=== PATIENT | female | born 1950 | race Caucasian/White ===

== ENCOUNTER 2021-08-18 10:07 | Inpatient (IN) ==
--- NOTE | 2021-06-30 14:47 | PAT Medication Instructions ---
Medication Instructions Date of Service June 30, 2021 Home Medications Medication Instructions Recorded lisinopril 20 mg tablet 20 mg PO BID #180 tab 06/19/20 albuterol sulfate 90 mcg/actuation 2 puff INH Q6H PRN #18 gm 09/30/20 aerosol inhaler isosorbide mononitrate 60 mg 30 mg PO BID #90 tab 11/23/20 tablet,extended release 24 hr alendronate 70 mg tablet 70 mg PO WEEKLY #7 tab 01/06/21 carvedilol 6.25 mg tablet 3.125 mg PO BID #180 tab 01/29/21 meclizine 25 mg tablet 25 mg PO TID PRN #60 tab 04/12/21 amlodipine 5 mg tablet 5 mg PO BID #180 tab 06/08/21 pantoprazole 40 mg tablet,delayed 40 mg PO QAM #90 tab 06/08/21 release (Protonix) sertraline 100 mg tablet 100 mg PO QAM #90 tab 06/08/21 cyclobenzaprine 5 mg tablet 5 mg PO TID PRN #20 tab 06/21/21 aspirin 81 mg tablet,delayed release 81 mg PO QAM cholecalciferol (vitamin D3) 125 mcg (5,000 unit) capsule 5,000 units PO QAM nitroglycerin 0.4 mg sublingual tablet 0.4 mg SL Q5M PRN melatonin 5 mg capsule 10 mg PO HS lisinopril 20 mg tablet 20 mg PO BID albuterol sulfate 90 mcg/actuation aerosol inhaler 2 puff INH Q6H PRN isosorbide mononitrate 60 mg tablet,extended release 24 hr 30 mg PO BID alendronate 70 mg tablet 70 mg PO WEEKLY carvedilol 6.25 mg tablet 3.125 mg PO BID acetaminophen 500 mg tablet (Tylenol Extra Strength) 1,000 mg PO Q6H PRN atorvastatin 40 mg tablet 40 mg PO HS meclizine 25 mg tablet 25 mg PO TID PRN amlodipine 5 mg tablet 5 mg PO BID pantoprazole 40 mg tablet,delayed release (Protonix) 40 mg PO QAM sertraline 100 mg tablet 100 mg PO QAM cyclobenzaprine 5 mg tablet 5 mg PO TID PRN acyclovir 400 mg tablet 400 mg PO BID furosemide 20 mg tablet (Lasix) 20 mg PO QAM naproxen sodium 220 mg capsule (Aleve) 220 mg PO BID PRN Continue as directed nitroglycerin 0.4 mg sublingual tablet 0.4 mg SL Q5M PRN (if needed) alendronate 70 mg tablet 70 mg PO WEEKLY (just do not take morning of surgery) ASK your surgeon for instructions naproxen sodium 220 mg capsule (Aleve) 220 mg PO BID PRN ASK your prescriber and surgeon aspirin 81 mg tablet,delayed release 81 mg PO QAM DO NOT take the morning of surgery cholecalciferol (vitamin D3) 125 mcg (5,000 unit) capsule 5,000 units PO QAM lisinopril 20 mg tablet 20 mg PO BID cyclobenzaprine 5 mg tablet 5 mg PO TID PRN furosemide 20 mg tablet (Lasix) 20 mg PO QAM Take morning of surgery With a small sip of water, OTHERWISE NOTHING TO EAT OR DRINK AFTER MIDNIGHT: albuterol sulfate 90 mcg/actuation aerosol inhaler 2 puff INH Q6H PRN (use if needed; please bring with you to hospital day of surgery if possible) isosorbide mononitrate 60 mg tablet,extended release 24 hr 30 mg PO BID carvedilol 6.25 mg tablet 3.125 mg PO BID acetaminophen 500 mg tablet (Tylenol Extra Strength) 1,000 mg PO Q6H PRN (okay to take up to 4 hours prior to surgery if needed) meclizine 25 mg tablet 25 mg PO TID PRN (if needed) amlodipine 5 mg tablet 5 mg PO BID pantoprazole 40 mg tablet,delayed release (Protonix) 40 mg PO QAM sertraline 100 mg tablet 100 mg PO QAM acyclovir 400 mg tablet 400 mg PO BID Take evening before surgery melatonin 5 mg capsule 10 mg PO HS lisinopril 20 mg tablet 20 mg PO BID albuterol sulfate 90 mcg/actuation aerosol inhaler 2 puff INH Q6H PRN (if needed) isosorbide mononitrate 60 mg tablet,extended release 24 hr 30 mg PO BID carvedilol 6.25 mg tablet 3.125 mg PO BID acetaminophen 500 mg tablet (Tylenol Extra Strength) 1,000 mg PO Q6H PRN (if needed) atorvastatin 40 mg tablet 40 mg PO HS meclizine 25 mg tablet 25 mg PO TID PRN (if needed) amlodipine 5 mg tablet 5 mg PO BID cyclobenzaprine 5 mg tablet 5 mg PO TID PRN (if needed) acyclovir 400 mg tablet 400 mg PO BID Other Notes If you have any questions please call us at [phone] or [phone] or [phone] or [phone]
--- NOTE | 2021-08-16 08:40 | Anesthesiology Consultation ---
Date of Service August 16, 2021 Assessment & Plan (1) Encounter for pre-operative examination: - Pt states that her transportation can only bring her to hospital after 8:00 am DOS. She was advised of need to contact Dr. Mahmood's office regarding this to further coordinate. - cardiology surgeon ordered clearance 06/25/2021 [place]: "...Cardiology office visit (06/25/21): "Based on her functional status without anginal symptoms, normal LV systolic function, and stable EKG tracing -- Patient is an acceptable surgical risk to proceed with surgery as scheduled provided she take her usual doses of Coreg 3.125 mg, Imdur ER 30 mg, Aspirin 81 mg, and Amlodipine 5 mg on the morning of surgery with sips of water. Patient is aware that she should hold her Lisinopril the morning of surgery. There is no need for further ischemic workup at this time." Patient denies any change since cardiology visit. - COVID screening: Per assessment on 08/16/2021: Travel screen negative, no known COVID-19 positive contacts or current COVID-19 related symptoms. Patient vaccinated. Surgeon arranging preop COVID testing, completed at PAT appointment today. Awaiting results. Chart Review Chart Review: Acceptable Risk for Surgery (pending pre-op testing) and Patient seen in Pre Admission Testing Teaching & Discussion Pre-Anesthesia Teaching/Discussion Notes: Instructed NPO after midnight before surgery, except medications with 15 cc of water. Medication instructions provided according to the PAT guidelines. History Surgery Operation Date: 08/10/21 08:00 Proposed Procedures p Right Carotid Endarterectomy - Jimmie Mahmood MD Operation Date: 08/18/21 12:00 Proposed Procedures p Right Carotid Endarterectomy - Jimmie Mahmood MD Surgery re-scheduled and is now scheduled for 08/18/[address] Mahmood. Height/Weight Height: 5 ft 3 in Weight: 59.1 kg Allergies Allergy/AdvReac Type Severity Reaction Status Date / Time No Known Drug Allergies Allergy Verified 06/25/21 16:08 Medications Home Medications Medication Instructions Recorded Confirmed Last Taken aspirin 81 mg tablet,delayed 81 mg PO QAM 07/19/19 06/25/21 04/05/21 release cholecalciferol (vitamin D3) 125 5,000 units PO QAM 07/19/19 06/25/21 04/05/21 mcg (5,000 unit) capsule nitroglycerin 0.4 mg sublingual 0.4 mg SL Q5M PRN 07/19/19 06/25/21 Unknown tablet melatonin 5 mg capsule 10 mg PO HS 04/23/20 06/25/21 04/04/21 albuterol sulfate 90 mcg/actuation 2 puff INH Q6H PRN #18 gm 09/30/20 06/25/21 04/05/21 aerosol inhaler isosorbide mononitrate 60 mg 30 mg PO BID #90 tab 11/23/20 06/25/21 04/05/21 tablet,extended release 24 hr alendronate 70 mg tablet 70 mg PO WEEKLY #7 tab 01/06/21 06/25/21 04/01/21 acetaminophen 500 mg tablet 1,000 mg PO Q6H PRN 04/05/21 06/25/21 04/04/21 (Tylenol Extra Strength) 1000 mg atorvastatin 40 mg tablet 40 mg PO HS 04/05/21 06/25/21 04/05/21 meclizine 25 mg tablet 25 mg PO TID PRN #60 tab 04/12/21 06/25/21 Unknown amlodipine 5 mg tablet 5 mg PO BID #180 tab 06/08/21 06/25/21 Unknown pantoprazole 40 mg tablet,delayed 40 mg PO QAM #90 tab 06/08/21 06/25/21 Unknown release (Protonix) sertraline 100 mg tablet 100 mg PO QAM #90 tab 06/08/21 06/25/21 Unknown cyclobenzaprine 5 mg tablet 5 mg PO TID PRN #20 tab 06/21/21 06/25/21 Unknown acyclovir 400 mg tablet 400 mg PO BID tab 06/23/21 06/25/21 Unknown furosemide 20 mg tablet (Lasix) 20 mg PO QAM 06/25/21 06/25/21 Unknown naproxen sodium 220 mg capsule 220 mg PO BID PRN 06/25/21 06/25/21 Unknown (Aleve) lisinopril 20 mg tablet 20 mg PO BID #180 tab 08/02/21 Unknown carvedilol 6.25 mg tablet 3.125 mg PO BID #180 tab 08/09/21 Unknown Past Medical History Medical History (Updated 08/16/21 @ 08:50 by Ebony Martinez PA-C) Anemia Iron deficiency in setting of previous GI bleeding per heme/onc note 12/2020 Aortic aneurysm Infrarenal AAA 2.5 cm (stable) per 04/22/21 vascular duplex Carotid artery stenosis Multiple atherosclerotic plaques within bilateral carotid arteries causing significant stenosis at the origin of the right internal carotid artery per 04/05/21 Neck CTA CLL (chronic lymphocytic leukemia) 2015, follows with Dr. Sadler ([facility]; [place]) 6 month surveillance COPD (chronic obstructive pulmonary disease) Coronary artery disease RCA REN x 4 (November 2013), Follows with [facility] cardiology Emphysema of lung Per CTA (2018) Hyperlipidemia Osteoporosis Renal atrophy, right Follows with Dr. Allyn JOSEPH nephrology Resistant hypertension stable per pt Splenomegaly Patient denies h/o stroke, seizures, heart failure, DM, blood clots or blood transfusions. Exercise / Class Metabolic Activity III < 4 Walking/Shop/Light housework (denies CP or SOB) Past Family History Family History Sister Breast cancer Thyroid cancer at age 12. Mother Myocardial infarction Father Myocardial infarction Uncle Diabetes Denies family history of Ovarian cancer Prostate cancer Colorectal cancer Past Surgical History Surgical History History of cardiac cath RCA REN x 4 (November 2013) History of colonoscopy History of hysterectomy Total hysterectomy + appendectomy S/P hernia surgery Past Anesthesia History No Hx of Anesthesia Complications and No Family Hx of Anesthesia Complications History of PONV No Hx of PONV and No Hx of Motion Sickness Social History Smoking Status: Current every day smoker Smoking cigarettes per day: 6-denies any in past week Do You Dip or Chew Tobacco: No Hx Alcohol Use: Yes Alcohol type: wine alcohol intake frequency: a few times a month Hx Substance Use: No Review of Systems Chronic occasional dyspnea with exertion, stable per pt and cardio note. Patient denies chest pain, snoring, witnessed apneas, reflux, fever, chills, cough, wheezing, or palpitations. Physical Exam Vital Signs Vitals BP 133/65 P 62 TEMP 98.2 SP02 95% on RA RESP 16 Physical Full cervical extension range of motion without pain Full TMJ range of motion TMD 3.5 finger breaths Mallampati Score 2 Dentition: edentulous, wears full upper and lower dentures Lungs: normal respiratory effort. Clear throughout to auscultation, no adventitious breath sounds Cardiac: regular rate and rhythm, 1/6 systolic murmur (also noted at cardiology appointment) Extremities: no distal extremity edema Lab Results Anesthesia Preop Results Results Anesthesia Widget: WBC 62.17 K/uL (4.8-10.8) H* 08/16/21 Hgb 14.1 g/dL (12.0-16.0) 08/16/21 Hct 42.4 % (37-47) 08/16/21 Plt 175 K/uL (130-400) 08/16/21 Na 139 mmol/L (136-145) 08/16/21 K 3.9 mmol/L (3.5-5.1) 08/16/21 Cl 107 mmol/L (98-107) 08/16/21 CO2 25 mmol/L (21-32) 08/16/21 BUN 18 mg/dl (7-18) 08/16/21 Creat 0.91 mg/dl (0.6-1.2) 08/16/21 Glucose Level 104 mg/dl (70-99) H 08/16/21 PT 10.0 Seconds (9.0-12.0) 08/16/21 PTT 26.1 Seconds (21.0-31.0) 08/16/21 INR 1.0 (0.9-1.1) 08/16/21 Urine Appearance Clear 08/04/21 Blood Type A Negative 08/16/21 Antibody Screen NEGATIVE 08/16/21 Lab Comments: Most recent WBC comparison in the high 50s, known history of CLL, will forward to heme/onc for continuity of care. Testing Electrocardiogram Date: 04/05/21 Sinus bradycardia, rate 59 bpm. Possible Left atrial enlargement Left ventricular hypertrophy Anterior infarct , age undetermined Abnormal ECG No previous ECGs available Confirmed by Arnel Braga. Reviewed at [facility] cardiology appointment 04/08/2021 and pt deemed stable with plan for routine follow-up. Chest X-Ray Date: 08/16/21 The heart is top normal in size noting atherosclerotic calcification of the thoracic aorta. A coronary artery stent is noted. Enlargement of the central pulmonary arteries suggests pulmonary artery hypertension. Emphysema and chronic interstitial thickening is similar to previous. There is bibasilar scarring/atelectasis. No airspace consolidation or large pleural effusion is identified. There is no pneumothorax. The skeletal structures are osteopenic. Degenerative change and hyperkyphosis are noted in the thoracic spine. There are healed left-sided rib fractures. IMPRESSION: Emphysematous change with no acute cardiopulmonary abnormality. Echocardiogram Date: 03/14/19 Left ventricular systolic function is normal. Left ventricular wall motion is normal. EF 55-60%. Mild aortic regurgitation. Moderate mitral regurgitation. Mild tricuspid regurgitation. Right ventricular systolic pressure is elevated at 30-40 mmHg.
--- NOTE | 2021-08-18 09:01 | History & Physical Report ---
Date of Service August 18, 2021 Assessment & Plan (1) Carotid stenosis, right: Plan: Patient for a right carotid endarterectomy. I have discussed the risks options and benefits of the procedure with the patient. The patient understands the risks options and benefits and agrees to the procedure. History of Present Illness Chief Complaint: Right carotid stenosis Primary Care Provider: AMBROCIO Bolden is an elderly female who presents today for a new patient in consultation regarding right internal carotid artery stenosis noted on a CTA of the neck, as well as her history of abdominal aortic aneurysm measuring 2.8 cm, and right renal artery stenosis noted on a recent ultrasound. Patient had an episode of vertigo, and went to the [facility] emergency department, where she underwent imaging of her brain and neck arteries. Right internal carotid artery stenosis of about 90% was noted on CTA. Patient states that she was given a medication for vertigo which caused her symptoms to resolve completely. She has not had recurrence of the symptoms. She specifically denies amaurosis, extremity weakness numbness or tingling, difficulty speaking or swallowing, sudden onset confusion or disorientation, facial droop, unilateral headache. Patient states she does have a long history of abdominal aortic aneurysm which has been imaged by her special services supervisor on an annual basis for the past few years. While that imaging was not available for our review today, special services supervisor notes indicate it to be 2.8 cm on his last evaluation in 2019. A renal artery ultrasound performed recently also indicated moderate stenosis of her right renal artery. Patient states that they have had trouble controlling her blood pressure in the past, however, she has been relatively well controlled on her current regimen which includes 5 antihypertensive medications. She states that her blood pressures at home running anywhere from 10 5-1 40 systolically, with diastolic values ranging from 60-80. She does admit some edema of her bilateral lower extremities. She denies headache, fever, recent illness, chest pain, shortness of breath, abdominal pain, nausea, vomiting, rest pain, claudication, nonhealing wounds or ulcers, other complaints. Allergies Allergy/AdvReac Type Severity Reaction Status Date / Time No Known Drug Allergies Allergy Verified 06/25/21 16:08 Home Medications Medication Instructions Recorded Confirmed Type aspirin 81 mg tablet,delayed 81 mg PO QAM 07/19/19 06/25/21 History release cholecalciferol (vitamin D3) 125 5,000 units PO QAM 07/19/19 06/25/21 History mcg (5,000 unit) capsule nitroglycerin 0.4 mg sublingual 0.4 mg SL Q5M PRN 07/19/19 06/25/21 History tablet melatonin 5 mg capsule 10 mg PO HS 04/23/20 06/25/21 History albuterol sulfate 90 mcg/actuation 2 puff INH Q6H PRN #18 gm 09/30/20 06/25/21 Rx aerosol inhaler isosorbide mononitrate 60 mg 30 mg PO BID #90 tab 11/23/20 06/25/21 Rx tablet,extended release 24 hr alendronate 70 mg tablet 70 mg PO WEEKLY #7 tab 01/06/21 06/25/21 Rx acetaminophen 500 mg tablet 1,000 mg PO Q6H PRN 04/05/21 06/25/21 History (Tylenol Extra Strength) atorvastatin 40 mg tablet 40 mg PO HS 04/05/21 06/25/21 History meclizine 25 mg tablet 25 mg PO TID PRN #60 tab 04/12/21 06/25/21 Rx amlodipine 5 mg tablet 5 mg PO BID #180 tab 06/08/21 06/25/21 Rx pantoprazole 40 mg tablet,delayed 40 mg PO QAM #90 tab 06/08/21 06/25/21 Rx release (Protonix) sertraline 100 mg tablet 100 mg PO QAM #90 tab 06/08/21 06/25/21 Rx cyclobenzaprine 5 mg tablet 5 mg PO TID PRN #20 tab 06/21/21 06/25/21 Rx acyclovir 400 mg tablet 400 mg PO BID tab 06/23/21 06/25/21 History furosemide 20 mg tablet (Lasix) 20 mg PO QAM 06/25/21 06/25/21 History naproxen sodium 220 mg capsule 220 mg PO BID PRN 06/25/21 06/25/21 History (Aleve) lisinopril 20 mg tablet 20 mg PO BID #180 tab 08/02/21 Rx carvedilol 6.25 mg tablet 3.125 mg PO BID #180 tab 08/09/21 Rx Past Med/Surg History Medical History Anemia Iron deficiency in setting of previous GI bleeding per heme/onc note 12/2020 Aortic aneurysm Infrarenal AAA 2.5 cm (stable) per 04/22/21 vascular duplex Carotid artery stenosis Multiple atherosclerotic plaques within bilateral carotid arteries causing significant stenosis at the origin of the right internal carotid artery per 04/05/21 Neck CTA CLL (chronic lymphocytic leukemia) 2016, follows with [facility]. Sadler ([facility]; [place]) 6 month surveillance COPD (chronic obstructive pulmonary disease) Coronary artery disease RCA REN x 4 (November 2013), Follows with [facility] cardiology Emphysema of lung Per CTA (2018) Hyperlipidemia Osteoporosis Renal atrophy, right Follows with Dr. Allyn JOSEPH nephrology Resistant hypertension stable per pt Splenomegaly Surgical History History of cardiac cath RCA REN x 4 (November 2013) History of colonoscopy History of hysterectomy Total hysterectomy + appendectomy S/P hernia surgery Family History Sister Breast cancer Thyroid cancer at age 12. Mother Myocardial infarction Father Myocardial infarction Uncle Diabetes Denies family history of Ovarian cancer Prostate cancer Colorectal cancer Social History Smoking Status: Current every day smoker Tobacco Type: Cigarettes Age Started Using Tobacco: 18; packs per day: 0.5; Cigarettes Per Day: 6-denies any in past week; Second Hand Exposure: No; Hx Alcohol Use: Yes Alcohol type: wine Hx Substance Use: No Preferred Language: Lithuanian Communication Ability: Effective Visual Impairment: Limited Hearing Ability: Normal Water Softener Servicer Required: No Beliefs That Will Affect Care: None marital status: / Current Living Situation: Alone current occupational status: retired Feels Safe at Home: Yes Childhood Exposure to Second-Hand Smoke: No caffeine: Yes (Coffee x 3 - 4 per day.) during the past year weight has: remained stable Dental Care, Regularly: No Physical Activity Frequency: Daily Physical Activity Frequency Comment: walking Seatbelt Use: always Sunscreen Use: Yes Assistive Devices: Denture - Upper, Denture - Lower and Glasses Review of Systems All systems reviewed & are unremarkable except as noted in HPI & below Physical Exam Physical Exam: Constitutional: In general patient is a well-nourished well- developed elderly female no distress. She is alert and oriented without any focal neurological deficits. Her head is normocephalic and atraumatic. Her neck is supple nontender with a midline trachea. She has loud carotid bruits versus transmitted murmur. Her heart is regular with murmur noted. Her lungs are decreased throughout but clear. Her abdomen is soft nontender with normoactive bowel sounds in all 4 quadrants. I am unable to appreciate her pulsatile mass. Abdominal bruits are noted. Radial and femoral pulses are +3. Lower extremity distal pulses are +1 DP and nonpalpable PT's. She has brisk capillary refill and no sign of distal ischemia. She does have +2 edema of her lower legs and ankles.
[~2021-08-18 10:07] MED LIST: SODIUM CHLORIDE 0.9% 1000ML IV SCH; ceFAZolin 1000MG 1,000 MG/7.5 ML SYR IV SCH
[2021-08-18 11:21] LABS: Calcium 9.1 mg/dl (8.5-10.1); Creatinine Clr Calc Pharmacy 44.6 ml/min; Est GFR (African American) 70.7 ml/min; Potassium 4.6 mmol/L (3.5-5.1)
[2021-08-18] MEDS ORDERED: LIDOCAINE 2% 2 ML VIAL/AMP(20MG/ML) INFIL ONE (11:49)
[2021-08-18] MEDS ORDERED: ROCURONIUM BROMIDE 10 MG/ML 5 ML VIAL IV ONE (11:49)
[2021-08-18] MEDS ORDERED: MIDAZOLAM HCL 1 MG/ML 2ML VIAL ONE (11:49)
[2021-08-18] MEDS ORDERED: ONDANSETRON INJ 2 MG/ML 2 ML VIAL ONE (11:49)
[2021-08-18] MEDS ORDERED: HEPARIN SOD (PORCINE) 1000 UNIT/ML ONE (11:49)
[2021-08-18] MEDS ORDERED: PROPOFOL IV EMULSION 10 MG/ML 20 ML VIAL IV ONE (11:49)
[2021-08-18] MEDS ORDERED: NITROGLYCERIN 5 MG/ML 10 ML VIAL ONE (11:49)
[2021-08-18] MEDS ORDERED: DEXAMETHASONE SOD INJ 4 MG/ML VIAL ONE (11:49)
[2021-08-18] MEDS ORDERED: PHENYLEPHRINE HCL 10 MG/ML VIAL ONE (11:49)
[2021-08-18] MEDS ORDERED: fentaNYL citrate 100 MCG/2 ML VIAL ONE (11:50)
[2021-08-18] MEDS ORDERED: HEPARIN (PORCINE) 1000 UNIT/ML 10 ML (CATH LAB USE ONLY) ONE (12:07)
[2021-08-18] MEDS ORDERED: THROMBIN FOR SOLN 20000 UNIT KIT ONE (12:07)
[2021-08-18] MEDS ORDERED: GELATIN SPONGE SZ 100 ONE (12:07)
[2021-08-18] MEDS ORDERED: LIDOCAINE 1% LOCAL 20 ML VIAL ONE (12:07)
[2021-08-18] MEDS ORDERED: EPINEPHrine INJ 1 MG/ML AMP ONE (12:08)
[2021-08-18] MEDS ORDERED: BUPIVACAINE 0.5 % 5 MG/1 ML MPF 30ML VIAL ONE (12:08)
[2021-08-18] MEDS ORDERED: ePHEDrine sulfate 50 MG/ML AMP IV PRN (12:46)
[2021-08-18] MEDS ORDERED: fentaNYL citrate 100 MCG/2 ML VIAL IV PRN (12:46)
[2021-08-18] MEDS ORDERED: HYDROmorphone INJ 2 MG/ML SYR/VIAL IV PRN (12:46)
[2021-08-18] MEDS ORDERED: ATROPINE SULFATE 0.1 MG/ML 10ML SYR IV PRN (12:46)
[2021-08-18] MEDS ORDERED: ONDANSETRON INJ 2 MG/ML 2 ML VIAL IV PRN (12:46)
--- NOTE | 2021-08-18 12:49 | History & Physical Bridge Note ---
Date of Service August 18, 2021 History & Physical Bridge Note I have examined the patient, reviewed the History & Physical and in the interval since the performance of the History & Physical I have noted the following changes of clinical significance: no changes noted
[2021-08-18] MEDS ORDERED: ESMOLOL HCL INJ 10 MG/ML 10ML VIAL IV ONE (14:03)
[2021-08-18] MEDS ORDERED: GLYCOPYRROLATE 0.2 MG/ML VIAL ONE (15:19)
[2021-08-18] MEDS ORDERED: NEOSTIGMINE METHYLSULFATE 1 MG/ML 10ML VIAL ONE (15:19)
--- NOTE | 2021-08-18 15:26 | Operative Report ---
Post Operative Report Pre & Post Diagnosis Operation Date: 08/10/21 08:00 <No data on this case meets the specified criteria> Operation Date: 08/18/21 12:00 Pre-Op Diagnosis: Right Internal Carotid Artery Stenosis Post-Op Diagnosis: Right Internal Carotid Artery Stenosis I identified the patient and participated in the time-out.: Yes Procedure Operation Date: 08/10/21 08:00 <No data on this case meets the specified criteria> Operation Date: 08/18/21 12:00 Actual Procedures p Right Carotid Endarterectomy with bovine patch (Right) - Jimmie Mahmood MD Surgeon Jimmie Mahmood MD Allergy Physician Kerline,PAC Estimated Blood Loss 80 Findings Consistent with Post-Op Diagnosis Specimens plaque Anesthesia Type General Complications none Disposition Accompanied Patient To Recovery: No Disposition: Recovery Room Indications Is a 71-year-old female with severe stenosis of right internal carotid artery. Endarterectomy is recommended. I have discussed the risks options and benefits of the procedure with the patient. The patient understands the risks options and benefits and agrees to the procedure. Description of Procedure The patient was taken to the operating room and placed in supine position. After general anesthesia was accomplished the right side of the neck was prepped and draped in a sterile manner. The patient was identified and a timeout performed. A longitudinal neck incision was then made coursing along the medial border of the sternocleidomastoid muscle. The incision was taken down through the platysmal layer. The facial vein was identified, ligated, and divided. The common carotid artery was then seen. It was dissected free down to the omohyoid muscle. The dissection was carried upward until the external carotid artery and superior thyroid artery was seen. The external carotid was slung with a red rubber vessel loop. Next the dissection was carried up along the internal carotid artery. This was carried upward to beyond the area of narrowing. The hypoglossal nerve was seen and preserved. The patient was heparinized. After adequate heparinization was accomplished, the internal, external, and common carotid arteries were clamped. A longitudinal arteriotomy was started on the common carotid artery and extended upward along the internal carotid artery to a point beyond the area of narrowing. There was calcified plaque of the internal carotid artery origin causing approximately 85-90% narrowing. A Doppler shunt was then placed in the internal, followed by the common carotid artery and held in place with Elvin clamps. There was good back bleeding seen from the internal carotid artery. The endarterectomy was then started in the appropriate plane on the common carotid artery. This was carried upward and the external carotid was everted and endarterectomized. The endarterectomy was then carried up along the internal carotid artery till a nice feathering breakoff point was accomplished beyond the end of the plaque. The endarterectomy was then carried down further on the common carotid artery. At end of the arteriotomy, the plaque was then tr ansected. Under loop magnification, all loose debris and flaps werer removed. There is no distal flap seen at the end of the endarterectomy site. The arteriotomy then closed using a bovine patch using 6-0 Prolene suture. This was done in the usual vascular fashion. Prior to completing the closure, the doppler shunt was removed and the internal and common carotid arteries were reclamped. Backbleeding and forward bleeding was allowed to occur. The flow surface was irrigated with heparinized saline. The final few sutures were then placed and securely tied. Clamps were then removed off the external and common carotid arteries. The clamp was then removed the internal carotid artery. Good distal flow was seen. Adequate hemostasis was seen of the patch. The wound was inspected and adequate hemostasis was obtained. The wound was irrigated with antibiotic solution. It was then closed with a running 3-0 Vicryl suture for the platysmal layer and a 4-0 subcuticular Vicryl suture for the skin edges. Dermabond was used for dressing. The patient left the operation room in satisfactory condition and tolerated the procedure well. All needle and sponge counts were correct at the end of the procedure. Dory Mccarthy Pac assisted due to lack of resident availability and was necessary for prepping, draping, retraction, wound closure defects, subQ and skin closure and was necessary for the case. I attest to the content of the Intraoperative Record and any orders documented therein. Any exceptions are noted below.
[2021-08-18] MEDS ORDERED: NITROGLYCERIN SL 0.4 MG/TAB TAB SL PRN (16:35)
[2021-08-18] MEDS ORDERED: CYCLOBENZAPRINE HCL 5 MG TAB PO PRN (16:35)
[2021-08-18] MEDS ORDERED: NAPROXEN 250 MG TAB PO PRN (16:35)
[2021-08-18] MEDS ORDERED: MoRPHine SULFATE 4 MG/ML 1 ML CARP\\VIAL IV PRN (16:35)
[2021-08-18] MEDS ORDERED: ALBUTEROL HFA 8 GM INHALER INH PRN (16:35)
[2021-08-18] MEDS ORDERED: MECLIZINE HCL 25 MG TAB PO PRN (16:58)
[2021-08-18] MEDS ORDERED: ACETAMINOPHEN 500 MG TAB PO PRN (16:59)
--- NOTE | 2021-08-18 17:00 | Anesthesiology Progress Note ---
Date of Service August 18, 2021 Anesthesia Post Procedure Vital Signs Vital Signs: Temp Pulse Pulse Resp BP BP Pulse Ox 08/18/21 16:45 68 22 135/56 L 94 08/18/21 16:30 97.9 F 65 14 145/61 H 96 08/18/21 16:20 60 17 149/59 H 96 08/18/21 16:10 64 19 160/54 H 98 08/18/21 16:00 70 17 154/60 H 97 08/18/21 15:52 97.5 F L 76 16 163/69 H 97 08/18/21 10:48 98.8 F 54 L 18 144/65 H 149/58 H 96 Pain Intensity Posterior Neck: Pain Intensity: 3 Transfer of Care Handoff Completed per policy Notes Mental Status: alert / awake / arousable and participated in evaluation Patient Amnestic to Procedure: Yes Nausea / Vomiting: adequately controlled Pain: adequately controlled Airway Patency, RR, SpO2: stable & adequate BP & HR: stable & adequate Hydration State: stable & adequate Anesthetic Complications: no major complications apparent and Pt Satisfied with anesthetic care
[2021-08-18] MEDS: oxyCODONE/ACETAMINOPHEN 5mg/325mg TAB PO PRN (18:21)
[2021-08-18] MEDS ORDERED: ATORVASTATIN 40 MG TAB PO SCH (21:00)
[2021-08-18] MEDS ORDERED: MELATONIN 3 MG TAB PO SCH (21:00)
[2021-08-18] MEDS: D5W AND 1/2NSS 1,000 ML IV SCH (21:13)
[2021-08-18] MEDS: amLODIPine BESYLATE 5 MG TAB PO SCH (21:20)
[2021-08-18] MEDS: carvediloL 3.125 MG TAB PO SCH (21:21)
[2021-08-18] MEDS: ISOSORBIDE MONO EXTENDED REL 30 MG TABCR PO SCH (21:22)
[2021-08-18] MEDS: lisinopril 20 MG TAB PO SCH (21:23)
[2021-08-18] MEDS: ACYCLOVIR 400 MG TAB PO SCH (21:24)
[2021-08-18] MEDS: ceFAZolin 1000MG 1,000 MG/7.5 ML SYR IV SCH (22:36)
[2021-08-19] MEDS: oxyCODONE/ACETAMINOPHEN 5mg/325mg TAB PO PRN ×2 (04:09→10:34)
[2021-08-19] MEDS: D5W AND 1/2NSS 1,000 ML IV SCH (04:52)
[2021-08-19] MEDS: ceFAZolin 1000MG 1,000 MG/7.5 ML SYR IV SCH (06:10)
[2021-08-19] MEDS ORDERED: ALENDRONATE SODIUM 70 MG TAB PO SCH (06:30)
[2021-08-19 06:36] LABS: Hemoglobin 11.8 g/dL (12.0-16.0); Mean Corpuscular Hemoglobin 33.1 pg (25-34); Mean Corpuscular Hgb Conc 32.8 g/dL (32-36); Mean Corpuscular Volume 100.8 fL (80-100); Mean Platelet Volume 9.7 fL (7.4-10.4); Platelet Count 140 K/uL (130-400); RDW Coefficient of Variation 13.6 % (11.5-14.5); RDW Standard Deviation 50.3 fL (36.4-46.3); Red Blood Count 3.57 M/uL (4.2-5.4); White Blood Count 53.61 K/uL (4.8-10.8)
[2021-08-19 07:51] LABS: Basophils # (auto) 0.07 K/uL (0-0.2); Basophils % (auto) 0.1 %; Immature Granulocytes # (auto) 0.13 K/uL (0.00-0.02); Immature Granulocytes % (auto) 0.2 %; Lymphocytes % (auto) 86.9 %; Monocytes # (auto) 0.84 K/uL (0.11-0.59); Monocytes % (auto) 1.6 %; Neutrophils # (auto) 5.97 K/uL (1.4-6.5); Neutrophils % (auto) 11.2 %; Smudge Cells Present
--- NOTE | 2021-08-19 07:58 | Surgery Progress Note ---
Date of Service August 19, 2021 Assessment & Plan (1) S/P carotid endarterectomy: Plan: Doing well post op. No issues with incision (2) Postoperative urinary retention: Plan: Once she spontaneously voids can d/c home Admission and Anticipated Discharge Date Admission Date: August 18, 2021 Subjective Patient awake with no major complaints. No complaints of sensory or motor deficits. Swallowing without problem. Voice without change. Has not voided spontaneously as of yet. Was straight cath during the night Physical Exam Constitutional: WD/WN, vitals as above Neck: trachea midline mild incisional swelling Respiratory: normal respiratory effort; no respiratory distress Cardiovascular: Rate/Rhythm: regular rate and regular rhythm Musculoskeletal: no cyanosis or clubbing, extremities motor strength 5/5 Skin: + incision (dry and clean) Neurologic: CN's II-XI intact bilaterally and moves all extremities Cranial Nerves: + tongue not midline (very mild deviation) Psychiatric: Orientation: alert and oriented x 3 Results & Data ([facility]) Vital Signs (Past 12 Hours) Vital Signs Temp Pulse Pulse Resp BP Pulse Ox 08/19/21 06:12 36.8 C 61 16 172/68 H 96 08/19/21 00:00 36.7 C 77 18 118/66 97 08/18/21 20:41 36.8 C 69 16 161/74 H 96 08/18/21 20:08 68
[2021-08-19] MEDS ORDERED: SERTRALINE HCL 100 MG TABLET PO SCH (09:00)
[2021-08-19] MEDS ORDERED: PANTOprazole 40 MG TAB PO SCH (09:00)
[2021-08-19] MEDS ORDERED: FUROSEMIDE 20 MG TAB PO SCH (09:00)
[2021-08-19] MEDS ORDERED: CHOLECALCIFEROL 1,000 UNITS 25 MCG TAB PO SCH (09:00)
[2021-08-19] MEDS ORDERED: ASPIRIN 81 MG ECTAB PO SCH (09:00)
[2021-08-19] MEDS: amLODIPine BESYLATE 5 MG TAB PO SCH (09:23)
[2021-08-19] MEDS: ACYCLOVIR 400 MG TAB PO SCH (09:23)
[2021-08-19] MEDS: carvediloL 3.125 MG TAB PO SCH (09:25)
[2021-08-19] MEDS: ISOSORBIDE MONO EXTENDED REL 30 MG TABCR PO SCH (09:35)
[2021-08-19] MEDS: lisinopril 20 MG TAB PO SCH ×2 (09:38→10:36)
--- NOTE | 2021-08-24 08:32 | Discharge Summary ---
Date of Service August 24, 2021 Admission HPI Per Admitting Provider is an elderly female who presents today for a new patient in consultation regarding right internal carotid artery stenosis noted on a CTA of the neck, as well as her history of abdominal aortic aneurysm measuring 2.8 cm, and right renal artery stenosis noted on a recent ultrasound. Patient had an episode of vertigo, and went to the [facility] emergency department, where she underwent imaging of her brain and neck arteries. Right internal carotid artery stenosis of about 90% was noted on CTA. Patient states that she was given a medication for vertigo which caused her symptoms to resolve completely. She has not had recurrence of the symptoms. She specifically denies amaurosis, extremity weakness numbness or tingling, difficulty speaking or swallowing, sudden onset confusion or disorientation, facial droop, unilateral headache. Patient states she does have a long history of abdominal aortic aneurysm which has been imaged by her decorating consultant on an annual basis for the past few years. While that imaging was not available for our review today, decorating consultant notes indicate it to be 2.8 cm on his last evaluation in 2019. A renal artery ultrasound performed recently also indicated moderate stenosis of her right renal artery. Patient states that they have had trouble controlling her blood pressure in the past, however, she has been relatively well controlled on her current regimen which includes 5 antihypertensive medications. She states that her blood pressures at home running anywhere from 10 5-1 40 systolically, with diastolic values ranging from 60-80. She does admit some edema of her bilateral lower extremities. She denies headache, fever, recent illness, chest pain, shortness of breath, abdominal pain, nausea, vomiting, rest pain, claudication, nonhealing wounds or ulcers, other complaints. Admission Exam Per Admitting Provider Constitutional: In general patient is a well-nourished well-developed elderly female no distress. She is alert and oriented without any focal neurological deficits. Her head is normocephalic and atraumatic. Her neck is supple nontender with a midline trachea. She has loud carotid bruits versus transmitted murmur. Her heart is regular with murmur noted. Her lungs are decreased throughout but clear. Her abdomen is soft nontender with normoactive bowel sounds in all 4 quadrants. I am unable to appreciate her pulsatile mass. Abdominal bruits are noted. Radial and femoral pulses are +3. Lower extremity distal pulses are +1 DP and nonpalpable PT's. She has brisk capillary refill and no sign of distal ischemia. She does have +2 edema of her lower legs and ankles. Principal Diagnosis 1. s/p R CEA with bovine patch 2. R ICA stenosis Discharge Exam Constitutional WD/WN, vitals as above Neck trachea midline Respiratory normal respiratory effort; no respiratory distress Cardiovascular Rate/Rhythm: regular rate and regular rhythm Musculoskeletal no cyanosis or clubbing, extremities motor strength 5/5 Skin + incision (dry and clean) Neurologic CN's II-XI intact bilaterally and moves all extremities Cranial Nerves: + tongue not midline (very mild deviation) Psychiatric Orientation: alert and oriented x 3 Discharge Data Allergies Allergy/AdvReac Type Severity Reaction Status Date / Time No Known Drug Allergies Allergy Verified 06/25/21 16:08 Procedures Performed Operation Date: 08/10/21 08:00 <No data on this case meets the specified criteria> Operation Date: 08/18/21 12:00 Actual Procedures p Right Carotid Endarterectomy with bovine patch (Right) - Jimmie Mahmood MD Hospital Course (1) S/P carotid endarterectomy: Doing well post op day #1. No issues with incision (2) Postoperative urinary retention: Once she spontaneously voids can d/c home Total Time Total Time Spent Total Time Spent (In Minutes): 0 Discharge Plan Discharge Items Patient Disposition: Home - Self-Care Reason For Visit: Right Internal Carotid Artery Stenosis Discharge Diagnosis: Right carotid stenosis, right carotid endarterectomy Activity: Per Instructions section Bathing Comment: may shower in 24 hours Non-emergency contact: Surgeon Call non-emergency contact if: your temperature is above 101.5, your wound has increased redness, your wound has increased drainage and your wound pain has increased Follow-up/Referrals: Aleksey Marroquin CRNP [Primary Care Provider] - Diet: Heart Healthy Addtl Attending Provider Instructions: SPECIAL CARE INSTRUCTIONS: Medications: * Continue to take Aspirin as directed. Incision Care: * You may shower, but do not rub incision. You may let the warm soapy water run over it. Be sure to dry the incision well after bathing. * Do not shave directly over the incision until it is healed. * DO NOT IMMERSE THE INCISION IN A TUB/POOL/etc. UNTIL HEALED. Restrictions: * Do not drive for at least one week or if you are still taking any narcotic pain medication. * Do not lift anything heavier than a gallon of milk for one week after going home. Possible Complications: * Numbness - It is normal to have some numbness around the incision. Numbness can extend beyond the incision to areas of the neck, ear and face. The numbness is due to bruising of nerves during the surgery and will gradually improve over a period of months. * Hoarseness/Difficulty Speaking and Swallowing - The bruising of nerves in the neck can also cause a hoarse voice, difficulty speaking or swallowing. This may improve over time, HOWEVER, if it continues for more than a few days please contact our office ([phone]). * Excessive Swelling - There will be some swelling immediately after surgery which usually resolves within one week. If you notice that the swelling is getting worse, notify your surgeon ([phone]). * Drainage/Bleeding - If there is any drainage or bleeding, it should be a very small amount (less than a teaspoon per day). If you have excessive bleeding or drainage from the incision, call your surgeon ([phone]) right away. ACTIVATION OF EMERGENCY MEDICAL SYSTEM: Call 911, immediately, if you experience any of the following: Warning Signs and Symptoms of Stroke: * Sudden numbness or weakness of the face, arm or leg, especially on one side of the body * Sudden confusion, trouble speaking or understanding * Sudden trouble seeing in one or both eyes * Sudden trouble walking, dizziness, loss of balance or coordination * Sudden severe headache with no cause Do not delay calling 911 if you experience any warning signs or symptoms of a stroke. Delay in seeking medical attention may affect what treatments can be given to you. Risk Factors for Stroke: You can reduce your chances of stroke by working with your medical provider to adopt a healthy lifestyle. Some specific ways to lower your chance of stroke are: * If you are a smoker, now is the time to stop smoking cigarettes * If you are diabetic, improve the control of your blood sugars * Avoid excessive amounts of alcohol * Control high blood pressure * Lose weight if you are overweight * Be sure to lead an active lifestyle * Eat a healthy diet low in salt, cholesterol and fat You should know about other risk factors for stroke that you are unable to control. These include: * Age 55 years or older * Male gender * Certain racial groups: , or / * Family History of Stroke, Mini stroke or Heart Attack * Sickle Cell Disease You will be receiving a call from the Vascular Surgery Nurse after you are discharged. FOLLOW UP VISIT: It is important for you to keep your follow up appointments with your medical provider. Keep any scheduled doctor appointments. Call [phone] to schedule a follow up appointment if one not already scheduled. Pending Studies at Discharge: No Stand-Alone Forms: My [facility] [employer], Smoking Cessation Medications and DC Order Prescriptions: New oxycodone-acetaminophen [Percocet] 5-325 mg tablet 1 tab PO Q6H PRN (Reason: pain) Qty: 14 RF: 0 Continued albuterol sulfate 90 mcg/actuation HFA aerosol inhaler 2 puff INH Q6H PRN (Reason: shortness of breath or wheezing) Qty: 18 RF: 4 isosorbide mononitrate 60 mg tablet extended release 24 hr 30 mg PO BID Qty: 90 RF: 3 alendronate 70 mg tablet 70 mg PO WEEKLY Qty: 7 RF: 3 amlodipine 5 mg tablet 5 mg PO BID Qty: 180 RF: 1 pantoprazole [Protonix] 40 mg tablet,delayed release (DR/EC) 40 mg PO QAM Qty: 90 RF: 1 sertraline 100 mg tablet 100 mg PO QAM Qty: 90 RF: 1 cyclobenzaprine 5 mg tablet 5 mg PO TID PRN (Reason: muscle spasm) Qty: 20 RF: 0 lisinopril 20 mg tablet 20 mg PO BID Qty: 180 RF: 3 carvedilol 6.25 mg tablet 3.125 mg PO BID Qty: 180 RF: 3 melatonin 5 mg capsule 10 mg PO HS RF: 0 acyclovir 400 mg tablet 400 mg PO BID RF: 0 aspirin 81 mg tablet,delayed release (DR/EC) 81 mg PO QAM RF: 0 nitroglycerin 0.4 mg tablet, sublingual 0.4 mg SL Q5M PRN (Reason: Chest Pain) RF: 0 cholecalciferol (vitamin D3) 5,000 unit capsule 5,000 units PO QAM RF: 0 meclizine 25 mg tablet 25 mg PO TID PRN (Reason: dizziness) Qty: 60 RF: 0 acetaminophen [Tylenol Extra Strength] 500 mg Tablet 1,000 mg PO Q6H PRN (Reason: fever/pain) RF: 0 atorvastatin 40 mg tablet 40 mg PO HS RF: 0 furosemide [Lasix] 20 mg tablet 20 mg PO QAM RF: 0 naproxen sodium [Aleve] 220 mg Capsule 220 mg PO BID PRN (Reason: Pain) RF: 0 Discharge Orders: Discharge Order (Routine); Ordered 08/19/21 Ordered By: Jimmie Mahmood Admission Data Admit Date/Time: 08/18/21 12:49 Attending Provider: Jimmie Mahmood Admit Provider: Jimmie Mahmood Primary Care Provider: Aleksey Marroquin. Other Interventions: Discharge Summary Assessment (RN) Last Done: 08/19/21 11:12
== END 2021-08-19 11:42 | disposition home or self-care (01) | DRG 38 ==
LOC: ASU 10:07 → PACUINP 12:49